=== PATIENT | male | born 1975 | race American Indian/Alaskan Native ===

== ENCOUNTER 2020-12-28 21:32 | Emergency (ER) | payer SELFPAY ==
[~2020-12-28] VITALS: Ht 182.9 cm; Wt 99.8 kg
== END 2020-12-29 02:19 ==
LOC: ER 21:32
DX: S06.9X9A Unspecified intracranial injury with loss of consciousness of unspecified duration, initial encounter (principal); S62.521A Displaced fracture of distal phalanx of right thumb, initial encounter for closed fracture; S01.01XA Laceration without foreign body of scalp, initial encounter; S66.911A Strain of unspecified muscle, fascia and tendon at wrist and hand level, right hand, initial encounter; Z23 Encounter for immunization; R40.2362 Coma scale, best motor response, obeys commands, at arrival to emergency department; R40.2142 Coma scale, eyes open, spontaneous, at arrival to emergency department; R40.2252 Coma scale, best verbal response, oriented, at arrival to emergency department; V27.4XXA Motorcycle driver injured in collision with fixed or stationary object in traffic accident, initial encounter; Y93.89 Activity, other specified
CPT/HCPCS: 12002; 70450; 72125; 73130; 90471; 90714; 99284-25; A9270